=== PATIENT | male | born 1950 | race African-American/Black ===

== ENCOUNTER → 2017-11-24 | Day surgery (SDC) | payer MEDICARE, BC ==
[~2017-11-24] MED LIST: ASPI325T8 PO; ATEN25TA PO; ATEN50TA PO; DOXA2TAB2 PO; FERR325T14 PO; HYDROmorphone 2 MG/ML VIAL IV PRN; IV RINGERS,LACTATED 1000ML 1,000 ML IV SCH; LIDOCAINE 1% PF 2 ML VIAL. ID PRN; LISI-130 PO; LISI-334 PO; LISI-338 PO; METF10007 PO; METF500T16 PO; METH10TA2 PO; MORPHINE SULFATE 2 MG/ML VIAL. IV PRN; OMEP20CA9 PO; OXYC-323 PO; PROCHLORPERAZINE 10 MG/2 ML VIAL. IV PRN; PROPOFOL 40 ML IV ONE; SIMV10TA3 PO; VENL37.56 PO; VENL37.57 PO; [UNRECOGNIZED DRUG - CODE] PO; fentaNYL PF VIAL 100 MCG/2 ML VIAL IV PRN
[2017-11-24 09:43] VITALS: BP 176/87
--- NOTE | 2017-11-24 20:03 | CONS ---
DATE OF CONSULTATION: 11/24/2017 REFERRING PHYSICIAN: Dr. Johnine Mckeon. REASON FOR CONSULTATION: Colorectal screening. HISTORY OF PRESENT ILLNESS: A 67-year-old male whose past medical history is significant for hypertension, anemia, diabetes, gastroesophageal reflux disease, status post cholecystectomy, back surgery. He is seen for a screening colon exam that I have done previously. Colonoscopy was without abnormalities. Denies any melena, hematochezia, diarrhea, constipation. Except for his usual routine, denies any changes in his weight or his appetite. He is otherwise without additional complaints. PAST MEDICAL HISTORY: Reflux, history of depression, diabetes, high blood pressure and hyperlipidemia. The patient also states he has had a history of colonic polyps in the remote the past, but not on the last exam. PAST SURGICAL HISTORY: Status post back surgery, cholecystectomy, vasectomy. ALLERGIES: None. MEDICATIONS: Include aspirin, atenolol, vitamin D, doxazosin, ferrous sulfate, lisinopril, metformin, methadone, omeprazole, simvastatin, venlafaxine. SOCIAL HISTORY: Nondrinker, nonsmoker. FAMILY HISTORY: Otherwise, noncontributory. REVIEW OF SYSTEMS: Per records. PHYSICAL EXAMINATION: GENERAL: Reveals a well-nourished, well-developed male, who is alert and cooperative, in no distress. VITAL SIGNS: Pulse 85, respiratory rate 18. HEENT: Normocephalic and atraumatic head. Pupils and extraocular muscles are not tested. Sclerae anicteric. NECK: Supple. LUNGS: Clear. CARDIOVASCULAR: Reveals an S1, S2 without S3, S4 or appreciable murmur. ABDOMEN: Soft abdomen, normal bowel sounds without appreciable hepatosplenomegaly, with multiple surgical incisions. EXTREMITIES: Reveals no cyanosis, clubbing, edema. IMPRESSION: Colorectal screening is warranted at this time. Risks and benefits of procedure have been discussed. The patient is willing to proceed at this time. ADELA RODRÍGUEZ MD DR: ALISE/nts JOB#: [id number] / [id number]
== END | disposition home or self-care (01) ==
LOC: ENDOS 08:03
PROVIDERS: ATTEND Internal Medicine Gastroenterology
DX: D50.9 Iron deficiency anemia, unspecified (principal); K64.0 First degree hemorrhoids; I10 Essential (primary) hypertension; E78.00 Pure hypercholesterolemia, unspecified; E11.9 Type 2 diabetes mellitus without complications; K21.9 Gastro-esophageal reflux disease without esophagitis; Z90.49 Acquired absence of other specified parts of digestive tract; Z98.52 Vasectomy status; Z72.89 Other problems related to lifestyle; Z83.3 Family history of diabetes mellitus; Z79.899 Other long term (current) drug therapy; Z79.82 Long term (current) use of aspirin; Z82.49 Family history of ischemic heart disease and other diseases of the circulatory system
CPT/HCPCS: 45378; 82962; J2704

== ENCOUNTER → 2020-10-04 | Outpatient (CLI) | payer BC, MEDICARE ==
[2017-11-24 09:43] VITALS: BP 176/87
[~2020-10-04] MED LIST changes: -HYDROmorphone 2 MG/ML VIAL IV PRN; +IOHEXOL 240 MG/ML 50ML VIAL. PO ONE; -IV RINGERS,LACTATED 1000ML 1,000 ML IV SCH; -LIDOCAINE 1% PF 2 ML VIAL. ID PRN; -LISI-334 PO; -LISI-338 PO; +LISI-517 PO; +LISI20TA18 PO; +METH-572 PO; -METH10TA2 PO; -MORPHINE SULFATE 2 MG/ML VIAL. IV PRN; +OMEP20CA16 PO; -OMEP20CA9 PO; -OXYC-323 PO; +OXYC1TAB15 PO; -PROCHLORPERAZINE 10 MG/2 ML VIAL. IV PRN; -PROPOFOL 40 ML IV ONE; +SIMV10TA15 PO; -SIMV10TA3 PO; -fentaNYL PF VIAL 100 MCG/2 ML VIAL IV PRN
--- NOTE | 2020-10-04 17:35 | RAD ---
EXAM: CT abdomen without contrast. HISTORY: Abdominal pain. TECHNIQUE: CT of the abdomen only was performed without intravenous contrast. One or more of the foll owing individualized dose reduction techniques were utilized for this examination: 1. Automated exposure control. 2. Adjustment of the mA and/or kV according to patient size. 3. Use of iterative reconstruction technique. COMPARISON: None. FINDINGS: Bone windows reveal no suspicious lesions. There is grade 1 anterolisthesis at L3-4. There is moderate to severe central canal stenosis within the lower thoracic spine at T10-T12, mostly from calcified ligamentum flavum hypertrophy. It is also moderate within the lower lumbar spine. Laminecto my changes are noted at L3. There is not estimated posterior fusion from L4 through S1. Bone graft rvesting changes are noted along the right posterior iliac bone. The ligamentous portions of both sac roiliac joints are ankylosed. Images of the lung bases reveal mild atelectasis. There are calcifications of the aortic valve. The gallbladder is surgically absent. The common duct measures 7 mm. No cause for distal obstruction is seen. The pancreas, spleen and adrenal glands are unremarkable without contrast. Hypoattenuating 5 mm hepatic lesions on images 11 and 16 are most likely benign cysts or hemangiomas in the absence of known malignancy. A right renal cyst measures 1.6 cm and is likely benign. There are no renal or proximal/mid ureteral calculi. There are no pathologically enlarged lymph nodes. The appendix is not inflamed. There is no small bow el obstruction. The inferior portions of the true pelvis is not included. No pelvic cause for pain is identified. IMPRESSION: 1. No cause for pain is identified. 2. Mild extrahepatic biliary dilatation status post cholecystectomy. Correlate for cholestasis to ass ess significance. 3. Aortic valve calcifications. Correlate for aortic stenosis. 4. Multilevel thoracolumbar central canal stenosis as detailed above. This could be further assessed by MRI if the diagnosis is not already known. Electronically signed by: Riaz Colindres MD (10/04/2020 5:33 PM) [id number]
== END ==
LOC: CT 13:42
PROVIDERS: ATTEND Family Medicine
DX: I70.0 Atherosclerosis of aorta (principal); M48.05 Spinal stenosis, thoracolumbar region; Z90.49 Acquired absence of other specified parts of digestive tract; M43.16 Spondylolisthesis, lumbar region; N28.1 Cyst of kidney, acquired; R10.84 Generalized abdominal pain
CPT/HCPCS: 74150; Q9966